=== PATIENT | female | born 1990 | race Two or more races ===

== ENCOUNTER 2019-05-06 05:50 | Day surgery (SDC) | payer OTHER ==
[~2019-05-06 05:50] MED LIST: FIORINAL-COD 31 EACH PO; SINGULAIR10 MG PO; VENTOLIN HFA18 GM IH
== END 2019-05-06 18:00 | disposition home or self-care (01) ==
LOC: CIR.AMB 05:50
DX: N87.1 Moderate cervical dysplasia (principal); N72 Inflammatory disease of cervix uteri

== ENCOUNTER → 2020-10-07 | Outpatient (CLI) | payer OTHER | END | disposition home or self-care (01) | LOC: PRENATAL 08:03 | PROVIDERS: ATTEND Obstetrics & Gynecology Maternal & Fetal Medicine | DX: O26.851 Spotting complicating pregnancy, first trimester (principal); O36.80X1 Pregnancy with inconclusive fetal viability, fetus 1; Z36.89 Encounter for other specified antenatal screening; Z3A.09 9 weeks gestation of pregnancy ==

== ENCOUNTER 2020-10-18 21:14 | Inpatient (IN) | payer OTHER ==
[~2020-10-18] VITALS: Ht 160 cm; Wt 51.3 kg
== END 2020-10-22 10:47 | disposition home or self-care (01) | DRG 817 ==
LOC: ER 21:14 → SEC-K 22:37 → OB/GYN 22:37
PROVIDERS: ADMIT Obstetrics & Gynecology; ATTEND Obstetrics & Gynecology
PROC: 0UB50ZZ Excision of Right Fallopian Tube, Open Approach (ICD-10-PCS; principal; 2020-10-19)
PROC: [UNRECOGNIZED PROCEDURE] (2020-10-19)
PROC: 30233N1 Transfusion of Nonautologous Red Blood Cells into Peripheral Vein, Percutaneous Approach (ICD-10-PCS; 2020-10-19)
DX: O00.101 Right tubal pregnancy without intrauterine pregnancy (principal); K66.1 Hemoperitoneum; D62 Acute posthemorrhagic anemia; N93.8 Other specified abnormal uterine and vaginal bleeding; Z20.822 Contact with and (suspected) exposure to COVID-19

== ENCOUNTER 2021-08-02 07:16 | Emergency (ER) | payer OTHER ==
[~2021-08-02] VITALS: Ht 160 cm; Wt 52.2 kg
[2021-08-02] MEDS ORDERED: OBSTETRIX ONE (07:27)
== END 2021-08-02 13:16 | disposition home or self-care (01) ==
LOC: ER 07:16
DX: O20.9 Hemorrhage in early pregnancy, unspecified (principal); Z3A.01 Less than 8 weeks gestation of pregnancy; Z88.0 Allergy status to penicillin; Z91.013 Allergy to seafood; Z88.6 Allergy status to analgesic agent

== ENCOUNTER 2021-08-11 17:30 | Emergency (ER) | payer OTHER ==
[~2021-08-11] VITALS: Ht 160 cm; Wt 52.2 kg
[~2021-08-11 17:30] MED LIST changes: +OBSTETRIX ONE
== END 2021-08-12 13:48 | disposition home or self-care (01) ==
LOC: ER 17:30
DX: O46.91 Antepartum hemorrhage, unspecified, first trimester (principal); Z3A.09 9 weeks gestation of pregnancy

== ENCOUNTER 2022-08-15 09:31 | Outpatient (CLI) | payer OTHER | END 2022-08-15 11:52 | disposition home or self-care (01) | LOC: PRENATAL 09:31 | PROVIDERS: ATTEND Obstetrics & Gynecology Maternal & Fetal Medicine | DX: O36.80X0 Pregnancy with inconclusive fetal viability, not applicable or unspecified (principal); O26.859 Spotting complicating pregnancy, unspecified trimester; Z3A.01 Less than 8 weeks gestation of pregnancy ==

== ENCOUNTER 2022-08-22 06:03 | Emergency (ER) | payer OTHER ==
[~2022-08-22] VITALS: Ht 160 cm; Wt 52.6 kg
[2022-08-22] MEDS ORDERED: PRENATAL + DHA1 EAC1 PO (06:15)
== END 2022-08-22 12:29 | disposition home or self-care (01) ==
LOC: ER 06:03
DX: O20.8 Other hemorrhage in early pregnancy (principal); Z3A.08 8 weeks gestation of pregnancy; Z88.6 Allergy status to analgesic agent; Z88.0 Allergy status to penicillin; Z91.018 Allergy to other foods

== ENCOUNTER 2022-08-29 05:27 | Day surgery (SDC) | payer OTHER ==
[~2022-08-29] VITALS: Ht 160 cm; Wt 52.6 kg
[~2022-08-29 05:27] MED LIST changes: +PRENATAL + DHA1 EAC1 PO
--- NOTE | 2022-08-29 05:42 | NUR ---
PTE ALERTA Y ORIENTADA X3 EN COMPANIA DE FAMILIAR. PTE REFIERE TENER SANGRADO VAGINAL A CAUSA DE ANTONI MEDICAMENTO CYTOTEC PARA PROVOCAR EL ABORTO EL CUAL RECETADO POR EL DR. DREW.
--- NOTE | 2022-08-29 06:14 | NUR ---
PACIENTE ALERTA Y ORIENTADA X3. MANEJADA POR MISS. POPE QUIEN ORIENTA A PACIENTE SOBRE PROCEDIMIENTO A RECIBIR Y TX A RECIBIR Y REFIRIO ENTENDER. ADMINISTRA MEDICAMENTOS ORDENADOS POR REALIZA MUESTRAS DE LABORATORIO BAJO MEDIDAS ASEPTICAS. PENDIENTE SONOGRAMA ORDENADO POR
--- NOTE | 2022-08-29 07:26 | NUR ---
SE RECIBE PTE EN EL AREA DE OBSERVACION EN JUANITA CON BARANDAS LEVADA Y TIEMBRE ACEESIBLE, NO PRESENTA DOLOR AL MOMENTO SE OBSERVA VENOPUNCION PATNETE Y SHERRIE DE EDMA, PTE EN ESEPRA DE SONOGRAMA TRASVAGINAL PTE EN ESPERA DE ENTREGAR ORIAN. PTE SE MANTIENE EN OBSERVACION Y BAJO TRATAMIENTO.
== END 2022-08-29 22:55 | disposition home or self-care (01) ==
LOC: CIR.AMB 05:27 → ER 05:27 → SEC-K 12:57 → O/R 12:57 → SEC-K 14:45 → EDSTATUS 15:00 → O/R 22:55 → CIR.AMB 22:55
PROVIDERS: ATTEND General Practice
DX: O03.4 Incomplete spontaneous abortion without complication (principal); O72.2 Delayed and secondary postpartum hemorrhage; N93.9 Abnormal uterine and vaginal bleeding, unspecified; Z88.6 Allergy status to analgesic agent; Z88.0 Allergy status to penicillin; Z91.013 Allergy to seafood

== ENCOUNTER 2023-05-02 06:18 | Emergency (ER) | payer OTHER ==
[~2023-05-02] VITALS: Ht 152.4 cm; Wt 54.4 kg
[2023-05-02] MEDS ORDERED: PRENA1 TRUE CO1 EACH PO (06:41)
[2023-05-02] MEDS ORDERED: ENDOMETRIN100 MG VG (06:41)
[2023-05-02 09:28] LABS: HEMATOCRIT 39.8 % (36.0-45.00); HEMOGLOBIN 13.6 g/dL (12.0-15.00); MEAN CORPUSCULAR HEMOGLOBIN 30.8 pg (27.00-32.0); MEAN CORPUSCULAR HGB CONC 34.2 g/dl (32.0-36.0); PLATELET COUNT 202 K/uL (150-450); RED BLOOD COUNT 4.43 M/uL (4.00-6.00); RED CELL DISTRIBUTION WIDTH 11.5 % (11.5-14.5)
[2023-05-02 09:40] LABS: PH,URINE 7.5 (5.0-8.0); URINE APPEARANCE Clear; URINE BILIRRUBIN Negative (NEGATIVE); URINE BLOOD Large; URINE COLOR Yellow; URINE GLUCOSE Negative (NEGATIVE); URINE LEUKOCYTE Moderate; URINE NITRATE Negative; URINE PROTEIN Negative (NEGATIVE); URINE UROBILINOGEN 0.2 E.U./dl
[2023-05-02 09:44] LABS: URINE BACTERIA 2906.5 uL (0.0-1933); URINE EPITHELIAL CELLS 23.4 uL (0.0-38.8); URINE RBC 42.1 uL (0.0-20.8)
[2023-05-02 09:52] LABS: CALCIUM 8.6 mg/dL (8.5-10.1); CREATININE SERUM 0.49 mg/dL (0.55-1.02); GFR 143.72; POTASSIUM 3.68 mEq/L (3.5-5.1)
== END 2023-05-02 08:48 | disposition home or self-care (01) ==
LOC: ER 06:18
PROVIDERS: Emergency Medicine
DX: O20.9 Hemorrhage in early pregnancy, unspecified (principal); Z3A.08 8 weeks gestation of pregnancy; Z88.6 Allergy status to analgesic agent; Z88.0 Allergy status to penicillin; Z91.013 Allergy to seafood

== ENCOUNTER → 2025-04-21 | Outpatient (CLI) | payer OTHER ==
[~2025-04-21] MED LIST changes: +ENDOMETRIN100 MG VG; +PRENA1 TRUE CO1 EACH PO
== END | disposition home or self-care (01) ==
LOC: SONOGRAMA 09:35
PROVIDERS: ATTEND Student in an Organized Health Care Education/Training Program
DX: Z34.00 Encounter for supervision of normal first pregnancy, unspecified trimester (principal)